=== PATIENT | female | born 1995 | race African-American/Black ===

== ENCOUNTER 2019-11-04 07:04 | Inpatient (IN) ==
[2019-11-04] MEDS ORDERED: TERBUTALINE 1 MG/1 ML VIAL SUBCUT ONE (07:44)
[2019-11-04] MEDS ORDERED: TERBUTALINE 1 MG/1 ML VIAL ONE (07:52)
[2019-11-04] MEDS ORDERED: ceFAZolin 3,000 MG in SYRINGE 1 EACH IV ONE (07:58)
[2019-11-04] MEDS ORDERED: CITRIC ACID/SODIUM CITRATE 30 ML UDCUP PO ONE (07:58)
[2019-11-04] MEDS ORDERED: LACTATED RINGERS 1,000 ML IV SCH ×2 (08:00→10:00)
[2019-11-04] MEDS ORDERED: BUPIVACAINE SPINAL 0.75% 2 ML AMP SPINAL ONE (08:22)
[2019-11-04] MEDS ORDERED: OXYTOCIN/LR 30 UNIT/1,000 ML BAG IV ONE (08:24)
[2019-11-04] MEDS ORDERED: OXYTOCIN 10 UNIT/ML VIAL IM ONE (08:24)
[2019-11-04 08:26] LABS: Basophils % 0.7 % (0.0-0.8); Eosinophils # 0.1 10*3/uL (0.0-0.87); Eosinophils % 2.4 % (0.00-10.9); Hematocrit 39.6 VOL% (35.7-47.0); Hemoglobin 12.4 GM/DL (12.0-16.0); Immature Granulocytes % 0.4 %; Immature Granulocytes Absolute 0.02 #; Lymphocytes # 1.4 10*3/uL (1.4-4.0); Lymphocytes % 31.4 % (21.3-54.2); Mean Corpuscular HGB Conc 31.3 GM/DL (32-36); Mean Corpuscular Volume 89.2 FL (87-102); Mean Platelet Volume 10.7 FL (9.6-12.0); Monocytes % 12.9 % (1.7-12.7); Neutrophils % 52.2 % (38.7-73.9); Red Blood Count 4.44 MC/CUMM (3.8-5.5); Red Cell Distribution Width 18.3 % (9.3-17.3); White Blood Count 4.6 T/CUMM (4-12)
[2019-11-04 08:27] LABS: Platelet Count 76 T/CUMM (130-400)
[2019-11-04 08:37] LABS: Apearance,Urine Slightly Hazy (Clear); Bilirubin,Urine Negative (Negative); Blood, Urine Large mg/dL (Negative); Glucose,Urine (UA) Negative (Negative); Ketones,Urine Negative (Negative); Mucus,Urine Occasional /LPF (Occasional); Nitrite,Urine Negative (Negative); Protein,Urine 100 MG/DL; RBC,Urine 7 /HPF (0-4); Squamous Epithelial Cell,Urine Few /HPF (0-10); Urine Color Yellow (Yellow); Urine Specific Gravity 1.008 (1.001-1.035); WBC,Urine 3 /HPF (0-6)
[2019-11-04 08:40] LABS: Albumin 1.9 G/DL (3.4-5.0); Bilirubin,Total 1.4 MG/DL (0.2-1.0); Calcium 8.2 MG/DL (8.5-10.1); Osmolality,Calculated 267.8 MOS/KG (273-304); Total Protein 5.6 G/DL (6.4-8.3)
[2019-11-04 08:49] LABS: Hypochromasia 1+; Microcytosis 1+; Ovalocytes Slight; Platelet Estimate Decreased; Tear Drop Cells Slight
[2019-11-04 09:00] LABS: Cord Venous Blood PCO2 67.5 MMHG; Cord Venous Blood PO2 29.3 MMHG
[2019-11-04 09:15] LABS: Apearance,Urine CLEAR (Clear); Bilirubin,Urine Negative (Negative); Blood, Urine Large mg/dL (Negative); Glucose,Urine (UA) Negative (Negative); Ketones,Urine Negative (Negative); Mucus,Urine Occasional /LPF (Occasional); Nitrite,Urine Negative (Negative); Protein,Urine >=500 MG/DL; RBC,Urine 11 /HPF (0-4); Squamous Epithelial Cell,Urine Occasional /HPF (0-10); Urine Color Amber (Yellow); Urine Specific Gravity 1.014 (1.001-1.035); WBC,Urine 1 /HPF (0-6)
[2019-11-04] MEDS ORDERED: MIDAZOLAM 2 MG/2 ML VIAL ONE ×2 (09:16→17:57)
[2019-11-04] MEDS ORDERED: PHENYLEPHRINE 1 MG/10 ML SYRINGE IV ONE ×2 (09:16→17:58)
[2019-11-04] MEDS ORDERED: fentaNYL 100 MCG/2 ML VIAL ONE ×2 (09:16→17:57)
[2019-11-04] MEDS ORDERED: propofoL 200 MG/20 ML VIAL IV ONE ×2 (09:16→17:57)
[2019-11-04] MEDS ORDERED: SUCCINYLCHOLINE 200 MG/10 ML VIAL ONE ×2 (09:17→17:58)
[2019-11-04] MEDS ORDERED: SEVOFLURANE 1 UNIT/15 MINUTE INH ONE ×2 (09:17→17:57)
[2019-11-04] MEDS ORDERED: OXYTOCIN/LR 20 UNIT/1,000 ML BAG IV ONE ×2 (09:41→09:54)
[2019-11-04] MEDS ORDERED: ONDANSETRON 4 MG/2 ML VIAL IV PRN (09:54)
[2019-11-04] MEDS ORDERED: IBUPROFEN 800 MG TABLET PO PRN (09:54)
[2019-11-04] MEDS ORDERED: ACETAMINOPHEN 325 MG TABLET PO PRN (09:54)
[2019-11-04] MEDS ORDERED: RHO(D) IMMUNE GLOBULIN 300 MCG SYRINGE IM ONE (09:54)
[2019-11-04] MEDS ORDERED: MAGNESIUM HYDROXIDE SUSP 30 ML UDCUP PO PRN (09:54)
[2019-11-04] MEDS ORDERED: ceFAZolin 1,000 MG in SYRINGE 1 EACH IV SCH (10:00)
[2019-11-04] MEDS ORDERED: MEPERIDINE 50 MG/1 ML VIAL ONE (13:22)
[2019-11-04] MEDS ORDERED: LIDOCAINE 1% 50 ML VIAL ONE (13:22)
[2019-11-04] MEDS ORDERED: MEPERIDINE 50 MG/1 ML VIAL IV ONE (13:30)
[2019-11-04 13:45] LABS: Hematocrit 36.1 VOL% (35.7-47.0); Hemoglobin 11.5 GM/DL (12.0-16.0)
[2019-11-04] MEDS ORDERED: HYDROmorphone 2 MG/1 ML VIAL ONE (15:38)
[2019-11-04] MEDS ORDERED: SODIUM CHLORIDE 0.9% 1,000 ML IV PRN (15:57)
[2019-11-04] MEDS ORDERED: HYDROmorphone 2 MG/1 ML VIAL IV PRN (17:40)
[2019-11-04] MEDS ORDERED: LIDOCAINE 2% 5 ML VIAL ONE (17:57)
[2019-11-04] MEDS ORDERED: ONDANSETRON 4 MG/2 ML VIAL ONE (17:58)
[2019-11-04] MEDS ORDERED: SODIUM CHLORIDE 0.9% 1,000 ML IV ONE (17:58)
[2019-11-04] MEDS ORDERED: DEXAMETHASONE 4 MG/1 ML VIAL ONE (17:58)
[2019-11-04] MEDS ORDERED: ROCURONIUM 100 MG/10 ML VIAL IV ONE (17:58)
[2019-11-04] MEDS: ceFAZolin 1,000 MG in SYRINGE 1 EACH IV SCH (19:17)
[2019-11-04 21:44] LABS: Basophils % 0.1 % (0.0-0.8); Hematocrit 35.9 VOL% (35.7-47.0); Hemoglobin 11.2 GM/DL (12.0-16.0); Immature Granulocytes % 0.6 %; Immature Granulocytes Absolute 0.08 #; Lymphocytes # 0.9 10*3/uL (1.4-4.0); Lymphocytes % 6.3 % (21.3-54.2); Mean Corpuscular HGB Conc 31.2 GM/DL (32-36); Mean Platelet Volume 11.4 FL (9.6-12.0); Platelet Count 110 T/CUMM (130-400); Red Blood Count 3.99 MC/CUMM (3.8-5.5); Red Cell Distribution Width 18.3 % (9.3-17.3)
[2019-11-04 21:47] LABS: White Blood Count 14.1 T/CUMM (4-12)
[2019-11-05] MEDS: ceFAZolin 1,000 MG in SYRINGE 1 EACH IV SCH (03:18)
[2019-11-05] MEDS: DOCUSATE SODIUM 100 MG CAPSULE PO SCH ×3 (04:41→21:37)
[2019-11-05 07:03] LABS: Basophils % 0.2 % (0.0-0.8); Hematocrit 31.1 VOL% (35.7-47.0); Hemoglobin 10.1 GM/DL (12.0-16.0); Immature Granulocytes % 0.5 %; Immature Granulocytes Absolute 0.09 #; Lymphocytes # 1.3 10*3/uL (1.4-4.0); Lymphocytes % 7.9 % (21.3-54.2); Mean Corpuscular HGB Conc 32.5 GM/DL (32-36); Mean Corpuscular Volume 88.1 FL (87-102); Mean Platelet Volume 11.3 FL (9.6-12.0); Monocytes % 10.8 % (1.7-12.7); NRBC # 0.02 10*3/uL; Neutrophils % 80.6 % (38.7-73.9); Platelet Count 99 T/CUMM (130-400); Red Blood Count 3.53 MC/CUMM (3.8-5.5); Red Cell Distribution Width 18.7 % (9.3-17.3); White Blood Count 16.6 T/CUMM (4-12)
[2019-11-05 07:35] LABS: Hypochromasia 1+; Microcytosis 1+; Platelet Estimate Decreased
[2019-11-05] MEDS: MULTIVITAMIN (PRENATAL) TABLET PO SCH (10:20)
[2019-11-05] MEDS: METOCLOPRAMIDE 10 MG TABLET PO SCH ×2 (10:46→16:19)
[2019-11-05] MEDS: SIMETHICONE CHEW 80 MG TABLET PO PRN (20:17)
[2019-11-06] MEDS: METOCLOPRAMIDE 10 MG TABLET PO SCH ×3 (01:05→18:31)
[2019-11-06] MEDS: SIMETHICONE CHEW 80 MG TABLET PO PRN (10:04)
[2019-11-06] MEDS: MULTIVITAMIN (PRENATAL) TABLET PO SCH (10:04)
[2019-11-06] MEDS: DOCUSATE SODIUM 100 MG CAPSULE PO SCH ×2 (10:04→20:49)
[2019-11-07 10:49] VITALS: BP 126/65
[2019-11-07] MEDS ORDERED: MAGNESIUM CITRATE 300 ML BOTTLE PO ONE (10:49)
[2019-11-07] MEDS: MULTIVITAMIN (PRENATAL) TABLET PO SCH (10:50)
[2019-11-07] MEDS: METOCLOPRAMIDE 10 MG TABLET PO SCH ×2 (10:50→11:08)
[2019-11-07] MEDS: DOCUSATE SODIUM 100 MG CAPSULE PO SCH (10:50)
[2019-11-07] MEDS ORDERED: DIPH/TET/ACEL PERT BOOSTER VACCINE 0.5 ML VIAL IM ONE (16:26)
== END 2019-11-07 17:00 | disposition home or self-care (01) | DRG 540 ==
LOC: N.LDOUT 07:04 → N.LD 07:05 → N.OB 18:36
PROVIDERS: ADMIT Obstetrics & Gynecology; ATTEND Obstetrics & Gynecology
PROC: LDCSECT (ICD-10-PCS; 2019-11-04 08:00)